=== PATIENT | female | born 1980 | race Caucasian/White ===

== ENCOUNTER → 2016-08-23 | Outpatient (CLI) | payer BC ==
[~2016-08-23] MED LIST: EST1 PO; FAMO20TA12 PO; LEVO25TA5 PO; LPT/40 PO; MEDR2.5T PO
--- NOTE | 2016-08-23 15:18 | MAMMOGRAPHY REPORT ---
BILATERAL DIGITAL SCREENING MAMMOGRAM TOMOSYNTHESIS WITH CAD: 08/23/2016 TECHNIQUE: Breast tomosynthesis in addition to standard 2D mammography was performed. Current study was also evaluated with a Computer Aided Detection (CAD) system. COMPARISON: Comparison is made to exams dated: 08/10/2015 mammogram, 12/31/2014 mammogram, and 07/02/19 15 mammogram - [facility]. BREAST COMPOSITION: The tissue of both breasts is heterogeneously dense, which may obscure small ma sses. FINDINGS: No suspicious masses, calcifications, or areas of architectural distortion are noted in e ither breast. There has been no significant interval change compared to prior exams. IMPRESSION: ACR BI-RADS CATEGORY 1: NEGATIVE There is no mammographic evidence of malignancy. A 1 year screening mammogram is recommended. The p atient will receive written notification of the results. Approximately 10% of breast cancers are not detected with mammography. A negative mammographic repor t should not delay biopsy if a clinically suggestive mass is present. Sharona Wakefield M.D. ah/:08/23/2016 14:46:01 Lamination Assembler: Luci WOODS(R)(Mike), [facility] letter sent: Normal 1/2 BI-RADS Code: ACR BI-RADS Category 1: Negative
== END | disposition home or self-care (01) ==
LOC: C.MAMM 07:17
PROVIDERS: ATTEND Obstetrics & Gynecology
DX: Z12.31 Encounter for screening mammogram for malignant neoplasm of breast (principal)

== ENCOUNTER → 2016-09-12 | Outpatient (CLI) | payer BC | END | disposition home or self-care (01) | LOC: C.PAPS 12:26 | PROVIDERS: ATTEND Obstetrics & Gynecology | DX: Z01.419 Encounter for gynecological examination (general) (routine) without abnormal findings (principal) ==

== ENCOUNTER → 2016-10-29 | Outpatient (CLI) | payer BC ==
--- NOTE | 2016-10-29 11:36 | DIAGNOSTIC IMAGING REPORT ---
ULTRASOUND RIGHT LOWER EXTREMITY VENOUS CLINICAL HISTORY: Right leg pain and swelling. COMPARISON STUDY: Right lower extremity venous ultrasound dated 07/01/2011. TECHNIQUE: Real-time, grayscale, and color Doppler sonography of the deep veins of the right lower extremity was performed from the inguinal crease to the calf. Compression and augmentation were utilized. FINDINGS: There is no sonographic evidence of deep venous thrombosis identified in the right lower extremity. The common femoral, superficial femoral, and popliteal veins are patent and normally compressible. The greater saphenous vein and the profunda femoris vein at the junction with the common femoral vein are clear. The visualized calf veins are patent. IMPRESSION: There is no sonographic evidence of deep venous thrombosis identified in the right lower extremity. Electronically signed by: Vince Swift M.D. 10/29/2016 11:35 AM Dictated Date/Time: 10/29/2016 11:34 AM
== END | disposition home or self-care (01) ==
LOC: C.ULTRBC 11:07
PROVIDERS: ATTEND Internal Medicine
DX: M79.604 Pain in right leg (principal)

== ENCOUNTER → 2016-10-29 | Outpatient (CLI) | payer BC | END | disposition home or self-care (01) | LOC: C.LABBFT 10:13 | PROVIDERS: ATTEND Physician Assistant Medical | DX: M79.604 Pain in right leg (principal) ==